=== PATIENT | male | born 1955 | race Two or more races ===

== ENCOUNTER 2023-07-02 11:35 | Emergency (ER) | payer OTHER ==
[~2023-07-02] VITALS: Ht 162.6 cm; Wt 96.2 kg
[2023-07-02] MEDS ORDERED: COZAAR100 MG (11:56)
[2023-07-02] MEDS ORDERED: FOLIC ACID0.8 M1 (11:56)
[2023-07-02] MEDS ORDERED: HORIZANT300 MG (11:56)
[2023-07-02] MEDS ORDERED: ZYLOPRIM100 M1 (11:57)
== END 2023-07-02 18:17 | disposition home or self-care (01) ==
LOC: ER 11:35
DX: J45.998 Other asthma (principal); Z88.0 Allergy status to penicillin; Z91.013 Allergy to seafood; I10 Essential (primary) hypertension; Z20.822 Contact with and (suspected) exposure to COVID-19
CPT/HCPCS: 36415; 94640; 96372; 99284; J1100